=== PATIENT | female | born 1935 | race Caucasian/White ===

== ENCOUNTER 2016-09-30 10:07 | Day surgery (SDC) | payer MEDICARE, BC ==
[~2016-09-30] VITALS: Ht 154.9 cm; Wt 65.4 kg
[~2016-09-30 10:07] MED LIST: AMBIEN 10MG10 MG PO; AMBIEN 5MG TABLE5 MG PO; ASPIRIN 81M81 MG/TA2 PO; ASPIRIN E.C. 8181 MG PO; ATIVAN 0.50.5 MG/TAB PO; ATROVENT I0.2 MG/1 M IH; ATROVENT INHALE14 GM IH; ATROVENTNS0.03% NS; B-121000 MCG PO; BUPROPION PO; CARDIZEM HC90 MG/CAP PO; CARDIZEM LA120 MG PO; CARDIZEM120 MG PO; CELEBREX 200MG200 MG PO; CELEBREX200 MG PO; CHANTIX 0.5MG0.5 MG; CHANTIX 1MG1 MG PO; CHANTIX START M1 TAB PO; COLACE 100100 MG/CAP PO; DARVOCET N 101 UDTAB PO; DARVOCET-N-101 UDTAB PO; DETROL LA4 MG PO; DETROL LA4 PO; DIFLUCAN 100MG100 MG PO; FLOVENT DI250 MCG/Ac IH; HCTZ 25MG TAB25 MG PO; HCTZ 25MG25 MG PO; HCTZ PO; HCTZ12.5TAB PO; IMDUR 30MG30 MG/TAB PO; IPRATROPIUM BROM3 M1 IH; IRON325 M1; KLOR-CON 1010 MEQ; KLOR-CON 1010 MEQ PO; KLOR-CON M2020 MEQ PO; LAMICTAL XR50 MG PO; LASIX 40MG TABL40 MG PO; LEVAQUIN 5500 MG/TA1 PO; LEVAQUIN 5500 MG/TAB PO; LEXAPRO 5MG5 MG PO; MICROZIDE12.5 MG PO; MIRAPEX 0.125MG PO; MIRAPEX 1MG PO; MYSOLINE 5050 MG/TAB PO; NEB IH; NEB INH; NEURONTIN100 MG/CAP PO; NITROSTAT0.4 MG/TAB SL; PERFOROMIS20 MCG/2 M IH; POTASSIUM CHLO10 ME2 PO; POTASSIUM20 MEQ PO; PRAVACHOL 40MG40 MG PO; PRAVASTATIN40 MG PO; PREDNISONE10 MG; PREDNISONE10 MG PO; PREDNISONE20 MG PO; PRILOSEC 20MG20 MG PO; PRILOTC PO; PROAIR HFA0.09 MG/AC IH; PROZAC20 MG PO; PULMICORT0.5 MG/21 IH; QUESTRAN4 GM/9 GM PO; RT SPIRIVA18 MCG IH; SLOW FE45 MG PO; SPIRIVA INH IH; STOOL SOFTENER100 M2 PO; SYNTHROID 0.0.025 MG PO; TIAZAC240 MG PO; VENTOLIN0.09 MG IH; VESICARE10 MG PO; VITAMIN B121000 MC2 SL; WELLBUTRIN SR150 M1 PO; WELLBUTRIN SR150 MG PO; XANAX .25M0.25 MG/TA PO; XANAX 0.5MG0.5 MG PO; XANAX0.25 MG PO; XOPENEX 1.1.25 MG/3 IH
[2016-09-30] MEDS ORDERED: LEXAPRO 5MG5 MG PO (10:53)
[2016-09-30] MEDS ORDERED: CHANTIX 1MG1 MG PO (10:57)
[2016-09-30 11:33] VITALS: BP 119/82; PULSE 98; TEMP 98.2
[2016-09-30 12:24] VITALS: BP 118/62; PULSE 91; TEMP 98.5
[2016-09-30 12:30] VITALS: BP 123/88; PULSE 84
[2016-09-30 12:45] VITALS: BP 126/55; PULSE 85
[2016-09-30 13:00] VITALS: BP 131/94; PULSE 86
[2016-09-30 16:21] VITALS: BP 123/57; PULSE 96
== END 2016-09-30 13:00 | disposition home or self-care (01) ==
LOC: SDCO 10:07
DX: R05 Cough (principal); R06.02 Shortness of breath; R09.89 Other specified symptoms and signs involving the circulatory and respiratory systems; J44.9 Chronic obstructive pulmonary disease, unspecified; F17.210 Nicotine dependence, cigarettes, uncomplicated; R09.02 Hypoxemia; Z79.899 Other long term (current) drug therapy; Z99.81 Dependence on supplemental oxygen; Z79.82 Long term (current) use of aspirin
CPT/HCPCS: J2704; J7120

== ENCOUNTER 2016-11-11 16:44 | Inpatient (IN) | payer MEDICARE, BC ==
[~2016-11-11] VITALS: Ht 154.9 cm; Wt 65.5 kg
[2016-11-11 17:41] VITALS: BP 119/66; PULSE 78; TEMP 98.5
[2016-11-11] MEDS ORDERED: UNIPHYL 400MG400 MG PO (18:24)
[2016-11-11] MEDS ORDERED: SYNTHROID0.075 MG/T PO (18:25)
[2016-11-11] MEDS ORDERED: CELEBREX 1100 MG/CAP PO (18:26)
[2016-11-11] MEDS ORDERED: TIAZAC120 MG PO (18:27)
[2016-11-11] MEDS ORDERED: ATROVENT I0.2 MG/1 M IH (18:31)
[2016-11-11] MEDS ORDERED: IMDUR 60MG60 MG/TAB PO (18:32)
[2016-11-11] MEDS ORDERED: LASIX 40MG TABL40 MG PO (18:32)
[2016-11-11] MEDS ORDERED: PRIL40 PO (18:33)
[2016-11-11] MEDS ORDERED: ZOFRAN 4MG T4 MG/TAB PO (18:37)
[2016-11-11 19:28] VITALS: BP 96/54; PULSE 76; TEMP 98.5
[2016-11-11 19:37] LABS: HEMATOCRIT 38.5 % (37.0-47.0); HEMOGLOBIN 12.5 g/dl (12.5-16.0); MEAN CELL VOLUME 91 fl (80.0-100.0); MEAN CORPUSCULAR HEMOGLOBIN 30 pg (27.0-31.0); MEAN CORPUSCULAR HGB CONC 33 g/dl (33.0-37.0); MEAN PLATELET VOLUME 11.6 fl (7.4-10.4); PLATELET COUNT 178 K/mm3 (130-400); RED BLOOD COUNT 4.24 M/mm3 (4.10-5.30); REDCELL DISTRIBUTION WIDTH-CV 13.9 % (11.5-14.5); WHITE BLOOD COUNT 4.1 K/mm3 (4.8-10.8)
[2016-11-11 19:39] LABS: ADD PATHOLOGY DIFF REVIEW NO
[2016-11-11 19:46] LABS: ADJUSTED CALCIUM 9.3 mg/dL (8.4-10.2); ALANINE AMINOTRANSFERASE 26 U/L (9-52); ALBUMIN 3.9 gm/dL (3.5-5.0); ALKALINE PHOSPHATASE 114 U/L (50-136); ANION GAP 15 mmol/L (7-16); BILIRUBIN,TOTAL 0.6 mg/dL (0.0-1.0); BLOOD UREA NITROGEN 15 mg/dL (7-17); CALCIUM 9.2 mg/dL (8.4-10.2); CARBON DIOXIDE 25 mmol/L (22-30); CHLORIDE 101 mmol/L (98-107); CREATININE, serum 1.35 mg/dL (0.52-1.25); GLUCOSE 107 mg/dL (74-106); POTASSIUM 3.6 mmol/L (3.4-5.0); SODIUM 140 mmol/L (137-145); TOTAL PROTEIN 7.3 gm/dL (6.4-8.2)
[2016-11-11 19:51] LABS: BAND 14 % (0-10); NEUTROPHILS 27 % (42.0-75.2); PLATELET ESTIMATE NORMAL (NORMAL); TOTAL CELLS COUNTED 100
[2016-11-11 20:06] LABS: TROPONIN-I < 0.012 ng/mL (0.000-0.034)
[2016-11-11 21:29] VITALS: BP 112/67; PULSE 101; TEMP 97.8
[2016-11-11 22:14] LABS: PH 5 (5-8); SQUAMOUS EPITHELIAL 0-2 /hpf; URINE APPEARANCE Hazy; URINE BACTERIA None Seen /hpf; URINE BILIRUBIN Negative (NEGATIVE); URINE BLOOD Negative (NEGATIVE); URINE COLOR Yellow; URINE GLUCOSE Negative (NEGATIVE); URINE KETONE Negative (NEGATIVE); URINE RBC None Seen /hpf; URINE UROBILINOGEN Negative (NEGATIVE); URINE WBC 0-2 /hpf
[2016-11-11 23:32] VITALS: BP 104/53; PULSE 95; TEMP 97.5
[2016-11-12 04:00] VITALS: BP 106/50; PULSE 89; TEMP 98
[2016-11-12 08:00] VITALS: BP 115/51; PULSE 98; TEMP 97.7
[2016-11-12 08:08] LABS: MEAN CELL VOLUME 91 fl (80.0-100.0); MEAN CORPUSCULAR HGB CONC 32 g/dl (33.0-37.0); MEAN PLATELET VOLUME 12.3 fl (7.4-10.4); PLATELET COUNT 151 K/mm3 (130-400); RED BLOOD COUNT 3.58 M/mm3 (4.10-5.30); REDCELL DISTRIBUTION WIDTH-CV 13.8 % (11.5-14.5); WHITE BLOOD COUNT 3.8 K/mm3 (4.8-10.8)
[2016-11-12 08:09] LABS: HEMATOCRIT 32.7 % (37.0-47.0); HEMOGLOBIN 10.5 g/dl (12.5-16.0); MEAN CORPUSCULAR HEMOGLOBIN 29 pg (27.0-31.0)
[2016-11-12 08:10] LABS: ADD PATHOLOGY DIFF REVIEW NO
[2016-11-12 08:33] LABS: BAND 4 % (0-10); NEUTROPHILS 42 % (42.0-75.2); TOTAL CELLS COUNTED 100
[2016-11-12 08:35] LABS: ANISOCYTOSIS 2+; HYPOCHROMIA 1+
[2016-11-12 08:57] LABS: CALCIUM 8.6 mg/dL (8.4-10.2); CREATININE, serum 1.31 mg/dL (0.52-1.25); POTASSIUM 3.2 mmol/L (3.4-5.0)
[2016-11-12 11:27] VITALS: BP 106/49; PULSE 93; TEMP 98.4
[2016-11-12] MEDS ORDERED: IPRATROPIUM BROM3 M1 IH (11:42)
[2016-11-12] MEDS ORDERED: LASIX 40MG TABL40 MG PO (11:44)
[2016-11-12] MEDS ORDERED: LEVAQUIN 750MG750 M1 PO (11:55)
[2016-11-12] MEDS ORDERED: SYNTHROID0.075 MG/T PO (11:55)
== END 2016-11-12 14:04 | disposition home or self-care (01) | DRG 189 ==
LOC: MEDICAL 16:44
PROVIDERS: Internal Medicine
DX: J96.11 Chronic respiratory failure with hypoxia (principal); J44.9 Chronic obstructive pulmonary disease, unspecified; I10 Essential (primary) hypertension; Z66 Do not resuscitate; F17.210 Nicotine dependence, cigarettes, uncomplicated; I48.91 Unspecified atrial fibrillation; E78.5 Hyperlipidemia, unspecified; R19.7 Diarrhea, unspecified; Z85.038 Personal history of other malignant neoplasm of large intestine
CPT/HCPCS: 99223-AI; 99239; J1644; J1956; J7030

== ENCOUNTER 2017-04-08 15:50 | Emergency (ER) | payer MEDICARE, BC ==
[~2017-04-08] VITALS: Ht 154.9 cm; Wt 63.6 kg
[~2017-04-08 15:50] MED LIST changes: +CELEBREX 1100 MG/CAP PO; +IMDUR 60MG60 MG/TAB PO; +LEVAQUIN 750MG750 M1 PO; +PRIL40 PO; +SYNTHROID0.075 MG/T PO; +TIAZAC120 MG PO; +UNIPHYL 400MG400 MG PO; +ZOFRAN 4MG T4 MG/TAB PO
[2017-04-08 15:53] VITALS: TEMP 98.1
[2017-04-08 16:41] LABS: BASO # 0.1 (0.0-0.2); BASO % 0.7 % (0.0-2.0); EOS # 0.1 (0.0-0.7); GRAN # 4.8 (1.4-6.5); GRAN % 69.6 % (42.2-75.2); HEMATOCRIT 37.4 % (37.0-47.0); LYMPH # 1.5 (1.2-3.4); LYMPH % 21.8 % (20.0-51.0); MEAN CELL VOLUME 94 fl (80.0-100.0); MEAN CORPUSCULAR HEMOGLOBIN 30 pg (27.0-31.0); MEAN CORPUSCULAR HGB CONC 32 g/dl (33.0-37.0); MEAN PLATELET VOLUME 11.2 fl (7.4-10.4); MONO # 0.5 (0.1-0.6); MONO % 6.6 % (1.7-9.3); PLATELET COUNT 231 K/mm3 (130-400); RED BLOOD COUNT 3.99 M/mm3 (4.10-5.30); REDCELL DISTRIBUTION WIDTH-CV 15.9 % (11.5-14.5); WHITE BLOOD COUNT 6.9 K/mm3 (4.8-10.8)
[2017-04-08 16:48] LABS: PH 5 (5-8); SQUAMOUS EPITHELIAL 0-2 /hpf; URINE APPEARANCE Hazy; URINE BACTERIA None Seen /hpf; URINE BILIRUBIN Negative (NEGATIVE); URINE BLOOD Negative (NEGATIVE); URINE COLOR Yellow; URINE GLUCOSE Negative (NEGATIVE); URINE KETONE Negative (NEGATIVE); URINE UROBILINOGEN Negative (NEGATIVE)
[2017-04-08 16:51] LABS: ADJUSTED CALCIUM 9.6 mg/dL (8.4-10.2); ALANINE AMINOTRANSFERASE 19 U/L (9-52); ALKALINE PHOSPHATASE 80 U/L (50-136); ANION GAP 10 mmol/L (7-16); BILIRUBIN,TOTAL 0.7 mg/dL (0.0-1.0); BLOOD UREA NITROGEN 18 mg/dL (7-17); CALCIUM 9.6 mg/dL (8.4-10.2); CARBON DIOXIDE 23 mmol/L (22-30); CHLORIDE 104 mmol/L (98-107); CREATINE KINASE 78 U/L (30-135); CREATININE, serum 1.04 mg/dL (0.52-1.25); GLUCOSE 120 mg/dL (74-106); LIPASE 67 U/L (23-300); POTASSIUM 4.4 mmol/L (3.4-5.0); SODIUM 137 mmol/L (137-145); TOTAL PROTEIN 7.3 gm/dL (6.4-8.2)
[2017-04-08 16:57] LABS: PROTHROMBIN TIME 10.6 SECONDS (9.7-12.8)
[2017-04-08 17:02] LABS: B-TYPE NATRIURETIC PEPTIDE 139 pg/mL (0-450)
[2017-04-08] MEDS ORDERED: IPRATROPIUM BROM3 M1 IH (17:03)
[2017-04-08 17:06] LABS: TROPONIN-I < 0.012 ng/mL (0.000-0.034)
[2017-04-08 17:08] LABS: ARTERIAL BLD GAS O2 SATURATION 91.2 % (92-100); ARTERIAL BLD GAS TCO2 CT 25.4; ARTERIAL BLOOD GAS BASE EXCESS -0.3 (-2-2); ARTERIAL BLOOD GAS HCO3 24.2 meq/L (22-26); ARTERIAL BLOOD GAS PO2 57.3 mmHg (80-100); ARTERIAL BLOOD GAS pH 7.41 (7.35-7.45)
[2017-04-08 17:09] LABS: ATS? YES
[2017-04-08] MEDS ORDERED: REGLAN 10MG10 MG/TAB PO (17:14)
[2017-04-08] MEDS ORDERED: MACROBID 1100 MG/CAP PO (18:14)
[2017-04-08 18:50] VITALS: BP 138/69; PULSE 74
== END 2017-04-08 18:58 | disposition home or self-care (01) ==
LOC: COL.ER 15:50
PROVIDERS: Emergency Medicine
DX: N39.0 Urinary tract infection, site not specified (principal); R41.0 Disorientation, unspecified; I25.10 Atherosclerotic heart disease of native coronary artery without angina pectoris; J44.9 Chronic obstructive pulmonary disease, unspecified; K21.9 Gastro-esophageal reflux disease without esophagitis; Z85.038 Personal history of other malignant neoplasm of large intestine; Z86.73 Personal history of transient ischemic attack (TIA), and cerebral infarction without residual deficits; Z90.710 Acquired absence of both cervix and uterus; Z90.49 Acquired absence of other specified parts of digestive tract; Z90.89 Acquired absence of other organs; Z98.890 Other specified postprocedural states
CPT/HCPCS: J2405; J7030

== ENCOUNTER 2017-04-10 14:02 | Observation (INO) | payer MEDICARE, BC ==
[~2017-04-10] VITALS: Ht 154.9 cm; Wt 68.4 kg
[~2017-04-10 14:02] MED LIST changes: +MACROBID 1100 MG/CAP PO; +REGLAN 10MG10 MG/TAB PO
[2017-04-10 15:41] LABS: HEMOGLOBIN 12.4 g/dl (12.5-16.0); MEAN CELL VOLUME 92 fl (80.0-100.0); MEAN CORPUSCULAR HEMOGLOBIN 30 pg (27.0-31.0); MEAN CORPUSCULAR HGB CONC 33 g/dl (33.0-37.0); MEAN PLATELET VOLUME 11.9 fl (7.4-10.4); PLATELET COUNT 232 K/mm3 (130-400); RED BLOOD COUNT 4.15 M/mm3 (4.10-5.30); REDCELL DISTRIBUTION WIDTH-CV 15.8 % (11.5-14.5); WHITE BLOOD COUNT 7.4 K/mm3 (4.8-10.8)
[2017-04-10 15:42] LABS: ADD PATHOLOGY DIFF REVIEW NO
[2017-04-10 15:44] LABS: ADJUSTED CALCIUM 9.4 mg/dL (8.4-10.2); ALANINE AMINOTRANSFERASE 22 U/L (9-52); ALBUMIN 4.2 gm/dL (3.5-5.0); ALKALINE PHOSPHATASE 87 U/L (50-136); ANION GAP 11 mmol/L (7-16); BILIRUBIN,TOTAL 0.5 mg/dL (0.0-1.0); BLOOD UREA NITROGEN 15 mg/dL (7-17); CALCIUM 9.6 mg/dL (8.4-10.2); CARBON DIOXIDE 24 mmol/L (22-30); CHLORIDE 104 mmol/L (98-107); CREATININE, serum 1.06 mg/dL (0.52-1.25); GLUCOSE 99 mg/dL (74-106); MAGNESIUM 1.8 mg/dL (1.6-2.3); PHOSPHOROUS 3.1 mg/dL (2.5-4.5); POTASSIUM 4.4 mmol/L (3.4-5.0); SODIUM 138 mmol/L (137-145); TOTAL PROTEIN 7.3 gm/dL (6.4-8.2)
[2017-04-10 15:51] LABS: ARTERIAL BLD GAS O2 SATURATION 93.6 % (92-100); ARTERIAL BLD GAS TCO2 CT 22.6; ARTERIAL BLOOD GAS BASE EXCESS -1.5 (-2-2); ARTERIAL BLOOD GAS HCO3 21.6 meq/L (22-26); ARTERIAL BLOOD GAS PHT 7.45 C (7.35-7.45); ARTERIAL BLOOD GAS PO2 65.2 mmHg (80-100); ARTERIAL BLOOD GAS PO2T 65.2 (80-100); ARTERIAL BLOOD GAS pH 7.45 (7.35-7.45)
[2017-04-10 15:53] LABS: ATS? YES
[2017-04-10 15:55] LABS: B-TYPE NATRIURETIC PEPTIDE 260 pg/mL (0-450)
[2017-04-10 15:56] LABS: TROPONIN-I < 0.012 ng/mL (0.000-0.034)
[2017-04-10 16:11] LABS: PH 7 (5-8); SQUAMOUS EPITHELIAL None Seen /hpf; URINE APPEARANCE Clear; URINE BACTERIA None Seen /hpf; URINE BILIRUBIN Negative (NEGATIVE); URINE BLOOD Negative (NEGATIVE); URINE COLOR Yellow; URINE GLUCOSE Negative (NEGATIVE); URINE KETONE Negative (NEGATIVE); URINE RBC 0-2 /hpf; URINE UROBILINOGEN Negative (NEGATIVE); URINE WBC 0-2 /hpf
[2017-04-10 16:41] LABS: BAND 2 % (0-10); BASOPHIL 1 % (0-2); EOSINOPHIL 3 % (0-4); NEUTROPHILS 64 % (42.0-75.2); PLATELET ESTIMATE NORMAL (NORMAL); TOTAL CELLS COUNTED 100
[2017-04-10 17:38] LABS: PROLACTIN 8.7 ng/mL (3.0-18.6)
[2017-04-10 20:11] VITALS: BP 157/64; PULSE 96; TEMP 98.2
[2017-04-10 23:53] VITALS: BP 146/56; PULSE 76; TEMP 97.8
[2017-04-11 04:29] VITALS: BP 149/76; PULSE 78; TEMP 97.3
[2017-04-11 07:53] VITALS: BP 141/61; PULSE 77; TEMP 98.6
[2017-04-11 13:33] VITALS: BP 118/44; PULSE 78; TEMP 98
[2017-04-11] MEDS ORDERED: DESYREL 50MG50 MG PO ×2 (14:51)
[2017-04-11] MEDS ORDERED: TYLENOL 325MG325 MG PO (14:51)
== END 2017-04-11 16:06 | disposition home or self-care (01) ==
LOC: COL.ER 14:02 → MEDICAL 17:16
PROVIDERS: Emergency Medicine
DX: R41.82 Altered mental status, unspecified (principal); R51 Headache; I67.1 Cerebral aneurysm, nonruptured; F44.89 Other dissociative and conversion disorders; R45.1 Restlessness and agitation; F22 Delusional disorders; F41.9 Anxiety disorder, unspecified; G25.0 Essential tremor; I25.10 Atherosclerotic heart disease of native coronary artery without angina pectoris; J44.9 Chronic obstructive pulmonary disease, unspecified; Z99.81 Dependence on supplemental oxygen; F51.04 Psychophysiologic insomnia; K21.9 Gastro-esophageal reflux disease without esophagitis; I10 Essential (primary) hypertension; E03.9 Hypothyroidism, unspecified; Z85.038 Personal history of other malignant neoplasm of large intestine; Z90.49 Acquired absence of other specified parts of digestive tract; I34.0 Nonrheumatic mitral (valve) insufficiency; Z91.81 History of falling; F17.210 Nicotine dependence, cigarettes, uncomplicated
CPT/HCPCS: 90791-AI; A9585; G0378; G8978-GP; G8979-GP; J2060; J7030

== ENCOUNTER 2017-05-03 15:50 | Observation (INO) | payer MEDICARE, BC ==
[~2017-05-03] VITALS: Ht 154.9 cm; Wt 78.6 kg
[~2017-05-03 15:50] MED LIST changes: +DESYREL 50MG50 MG PO; +TYLENOL 325MG325 MG PO
[2017-05-03 17:00] LABS: HEMATOCRIT 38.4 % (37.0-47.0); HEMOGLOBIN 12.5 g/dl (12.5-16.0); MEAN CELL VOLUME 92 fl (80.0-100.0); MEAN CORPUSCULAR HEMOGLOBIN 30 pg (27.0-31.0); MEAN CORPUSCULAR HGB CONC 33 g/dl (33.0-37.0); MEAN PLATELET VOLUME 11.4 fl (7.4-10.4); PLATELET COUNT 228 K/mm3 (130-400); RED BLOOD COUNT 4.19 M/mm3 (4.10-5.30); REDCELL DISTRIBUTION WIDTH-CV 16.7 % (11.5-14.5); WHITE BLOOD COUNT 10.9 K/mm3 (4.8-10.8)
[2017-05-03 17:02] LABS: ADD PATHOLOGY DIFF REVIEW NO
[2017-05-03 17:10] LABS: ADJUSTED CALCIUM 9.4 mg/dL (8.4-10.2); ALANINE AMINOTRANSFERASE 21 U/L (9-52); ALBUMIN 4.2 gm/dL (3.5-5.0); ALKALINE PHOSPHATASE 76 U/L (50-136); ANION GAP 11 mmol/L (7-16); BILIRUBIN,TOTAL 0.5 mg/dL (0.0-1.0); BLOOD UREA NITROGEN 24 mg/dL (7-17); CALCIUM 9.6 mg/dL (8.4-10.2); CARBON DIOXIDE 25 mmol/L (22-30); CHLORIDE 104 mmol/L (98-107); CREATINE KINASE 32 U/L (30-135); GLUCOSE 145 mg/dL (74-106); INR 0.9 (0.8-3.0); POTASSIUM 4.6 mmol/L (3.4-5.0); PROTHROMBIN TIME 9.9 SECONDS (9.7-12.8); SODIUM 140 mmol/L (137-145); TOTAL PROTEIN 7.2 gm/dL (6.4-8.2)
[2017-05-03 17:21] LABS: B-TYPE NATRIURETIC PEPTIDE 375 pg/mL (0-450)
[2017-05-03 17:26] LABS: TROPONIN-I < 0.012 ng/mL (0.000-0.034)
[2017-05-03 17:34] LABS: ARTERIAL BLD GAS O2 SATURATION 93.8 % (92-100); ARTERIAL BLD GAS TCO2 CT 26.1; ARTERIAL BLOOD GAS PO2 67.5 mmHg (80-100); ARTERIAL BLOOD GAS pH 7.44 (7.35-7.45); OXYHEMOGLOBIN 91.1 %
[2017-05-03 17:35] LABS: ALLEN TEST YES; ALLENS TEST RESULT PASS; ATS? YES
[2017-05-03 17:46] LABS: ANISOCYTOSIS 1+; BAND 7 % (0-10); NEUTROPHILS 85 % (42.0-75.2); PLATELET ESTIMATE NORMAL (NORMAL); TOTAL CELLS COUNTED 100
[2017-05-03] MEDS ORDERED: SPIRIVA RE2.5 MCG/Ac IH (17:59)
[2017-05-03] MEDS ORDERED: CHANTIX START M1 TAB PO (17:59)
[2017-05-03] MEDS ORDERED: LASIX 40MG TABL40 MG PO (18:00)
[2017-05-03] MEDS ORDERED: SYNTHROID0.05 MG/TA PO (18:02)
[2017-05-03] MEDS ORDERED: B-121000 MCG PO (18:03)
[2017-05-03] MEDS ORDERED: VITAMIN D 1001000 IU (18:04)
[2017-05-03] MEDS ORDERED: CELEBREX 200MG200 MG PO (18:05)
[2017-05-03] MEDS ORDERED: ASPIRIN 81M81 MG/TA2 PO (18:06)
[2017-05-03 21:32] VITALS: BP 128/53; PULSE 86; TEMP 98.2
[2017-05-04 00:46] VITALS: BP 114/41; PULSE 71; TEMP 97.7
[2017-05-04 05:33] LABS: PH 5 (5-8); URINE APPEARANCE Hazy; URINE BACTERIA Rare /hpf; URINE BILIRUBIN Negative (NEGATIVE); URINE BLOOD Negative (NEGATIVE); URINE COLOR Yellow; URINE GLUCOSE 3+ (NEGATIVE); URINE KETONE Trace (NEGATIVE); URINE RBC 0-2 /hpf; URINE UROBILINOGEN Negative (NEGATIVE)
[2017-05-04 05:38] VITALS: BP 117/48; PULSE 88; TEMP 98.3
[2017-05-04 08:07] VITALS: BP 138/76; PULSE 91; TEMP 98.6
[2017-05-04 12:03] VITALS: BP 111/55; PULSE 100; TEMP 98.6
[2017-05-04 16:48] VITALS: BP 120/53; PULSE 108; TEMP 98.9
[2017-05-04 22:30] VITALS: BP 115/47; PULSE 73; TEMP 98.4
[2017-05-05 01:37] VITALS: BP 115/41; PULSE 94; TEMP 97.6
[2017-05-05 05:00] VITALS: BP 151/76; PULSE 87; TEMP 97.7
[2017-05-05 07:35] LABS: CALCIUM 9.4 mg/dL (8.4-10.2); CREATININE, serum 1.25 mg/dL (0.52-1.25)
[2017-05-05 07:36] VITALS: BP 140/95; PULSE 95; TEMP 98.4
[2017-05-05 07:38] LABS: MEAN CELL VOLUME 93 fl (80.0-100.0); MEAN CORPUSCULAR HGB CONC 32 g/dl (33.0-37.0); MEAN PLATELET VOLUME 11.7 fl (7.4-10.4); PLATELET COUNT 197 K/mm3 (130-400); RED BLOOD COUNT 3.66 M/mm3 (4.10-5.30); REDCELL DISTRIBUTION WIDTH-CV 16.7 % (11.5-14.5); WHITE BLOOD COUNT 14.4 K/mm3 (4.8-10.8)
[2017-05-05 07:39] LABS: ADD PATHOLOGY DIFF REVIEW NO; HEMOGLOBIN 10.9 g/dl (12.5-16.0); MEAN CORPUSCULAR HEMOGLOBIN 30 pg (27.0-31.0)
[2017-05-05 08:52] LABS: BAND 6 % (0-10); NEUTROPHILS 77 % (42.0-75.2); PLATELET ESTIMATE NORMAL (NORMAL); TOTAL CELLS COUNTED 100
[2017-05-05 08:54] LABS: ANISOCYTOSIS 1+
[2017-05-05 08:56] LABS: HYPOCHROMIA 1+
[2017-05-05] MEDS ORDERED: LEVAQUIN 750MG750 M1 PO (09:07)
[2017-05-05] MEDS ORDERED: PULMICORT0.5 MG/2 M IH (09:14)
[2017-05-05] MEDS ORDERED: PREDNISONE10 MG PO (09:34)
[2017-05-05] MEDS ORDERED: DALIRESP500 MCG PO (09:35)
== END 2017-05-05 11:26 | disposition home or self-care (01) ==
LOC: COL.ER 15:50 → MEDICAL 19:14
PROVIDERS: Emergency Medicine; Internal Medicine; Nurse Practitioner Family
DX: J44.1 Chronic obstructive pulmonary disease with (acute) exacerbation (principal); F41.9 Anxiety disorder, unspecified; I12.9 Hypertensive chronic kidney disease with stage 1 through stage 4 chronic kidney disease, or unspecified chronic kidney disease; N18.3 Chronic kidney disease, stage 3 (moderate); I25.10 Atherosclerotic heart disease of native coronary artery without angina pectoris; E78.5 Hyperlipidemia, unspecified; G25.0 Essential tremor; K21.9 Gastro-esophageal reflux disease without esophagitis; E03.9 Hypothyroidism, unspecified; F51.04 Psychophysiologic insomnia; J96.11 Chronic respiratory failure with hypoxia; R41.82 Altered mental status, unspecified; F17.210 Nicotine dependence, cigarettes, uncomplicated; Z90.49 Acquired absence of other specified parts of digestive tract; Z90.710 Acquired absence of both cervix and uterus; Z86.73 Personal history of transient ischemic attack (TIA), and cerebral infarction without residual deficits; Z85.038 Personal history of other malignant neoplasm of large intestine; Z82.49 Family history of ischemic heart disease and other diseases of the circulatory system
CPT/HCPCS: 99232-AI; 99239; G0378; G8978-GP; G8979-GP; J1650; J2930; J7512

== ENCOUNTER → 2017-05-19 | Outpatient (CLI) | payer MEDICARE, BC ==
[~2017-05-19] MED LIST changes: +DALIRESP500 MCG PO; +PULMICORT0.5 MG/2 M IH; +SPIRIVA RE2.5 MCG/Ac IH; +SYNTHROID0.05 MG/TA PO; +VITAMIN D 1001000 IU
== END ==
LOC: BHSO 10:59
DX: F06.32 Mood disorder due to known physiological condition with major depressive-like episode (principal)

== ENCOUNTER 2017-06-10 12:18 | Emergency (ER) | payer MEDICARE, BC ==
[~2017-06-10] VITALS: Ht 154.9 cm; Wt 61.4 kg
[2017-06-10 12:20] VITALS: TEMP 98.6
[2017-06-10 12:57] LABS: COLLECTION METHOD CLEAN CATCH
[2017-06-10 13:00] LABS: BASO # 0.1 (0.0-0.2); EOS # 0.1 (0.0-0.7); GRAN # 6.1 (1.4-6.5); HEMATOCRIT 39.3 % (37.0-47.0); HEMOGLOBIN 12.8 g/dl (12.5-16.0); LYMPH # 2.8 (1.2-3.4); MEAN CELL VOLUME 92 fl (80.0-100.0); MEAN CORPUSCULAR HEMOGLOBIN 30 pg (27.0-31.0); MEAN CORPUSCULAR HGB CONC 33 g/dl (33.0-37.0); MEAN PLATELET VOLUME 10.9 fl (7.4-10.4); MONO # 0.9 (0.1-0.6); MONO % 9.2 % (1.7-9.3); PLATELET COUNT 335 K/mm3 (130-400); RED BLOOD COUNT 4.28 M/mm3 (4.10-5.30); WHITE BLOOD COUNT 10.1 K/mm3 (4.8-10.8)
[2017-06-10 13:06] LABS: MUCOUS Present /lpf; PH 7 (5-8); PROTHROMBIN TIME 11.3 SECONDS (9.7-12.8); SQUAMOUS EPITHELIAL 0-2 /hpf; URINE APPEARANCE Clear; URINE BACTERIA None Seen /hpf; URINE BILIRUBIN Negative (NEGATIVE); URINE BLOOD Negative (NEGATIVE); URINE COLOR Yellow; URINE GLUCOSE Negative (NEGATIVE); URINE KETONE Negative (NEGATIVE); URINE LEUKOCYTE ESTERASE Trace (NEGATIVE); URINE PROTEIN(semi-quant) Negative (NEGATIVE); URINE RBC 0-2 /hpf; URINE UROBILINOGEN Negative (NEGATIVE)
[2017-06-10 13:12] LABS: ADJUSTED CALCIUM 9.6 mg/dL (8.4-10.2); ALBUMIN 4.2 gm/dL (3.5-5.0); BILIRUBIN,TOTAL 0.6 mg/dL (0.0-1.0); CALCIUM 9.8 mg/dL (8.4-10.2); CREATININE, serum 1.15 mg/dL (0.52-1.25); TOTAL PROTEIN 7.6 gm/dL (6.4-8.2)
[2017-06-10 13:20] LABS: POTASSIUM 2.8 mmol/L (3.4-5.0)
[2017-06-10 13:23] LABS: TROPONIN-I 0.012 ng/mL (0.000-0.034)
[2017-06-10 14:39] VITALS: BP 119/79; PULSE 96
== END 2017-06-10 14:39 | disposition home or self-care (01) ==
LOC: COL.ER 12:18
PROVIDERS: Emergency Medicine
DX: K52.9 Noninfective gastroenteritis and colitis, unspecified (principal); N39.0 Urinary tract infection, site not specified; E87.6 Hypokalemia; I10 Essential (primary) hypertension; K21.9 Gastro-esophageal reflux disease without esophagitis; J44.9 Chronic obstructive pulmonary disease, unspecified; E78.5 Hyperlipidemia, unspecified; Z86.73 Personal history of transient ischemic attack (TIA), and cerebral infarction without residual deficits; Z86.69 Personal history of other diseases of the nervous system and sense organs; Z87.891 Personal history of nicotine dependence; Z79.82 Long term (current) use of aspirin; Z90.710 Acquired absence of both cervix and uterus; Z90.49 Acquired absence of other specified parts of digestive tract; Z90.89 Acquired absence of other organs; Z98.890 Other specified postprocedural states
CPT/HCPCS: J0696; J2765; J3010; J7030

== ENCOUNTER → 2018-02-12 | Outpatient (CLI) | payer MEDICARE, BC | LOC: COL.VAS 10:56 | DX: I08.0 Rheumatic disorders of both mitral and aortic valves (principal) ==